=== PATIENT | female | born 1985 | race Caucasian/White ===

== ENCOUNTER 2018-12-09 17:45 | Emergency (ER) | payer SELFPAY ==
[2018-12-09 18:16] VITALS: BP 131/99
--- NOTE | 2018-12-09 18:50 | UC ---
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 Pt works [employer] on feet for 9 hrs." -pain started suddenly er mornimng. she wears good shoes with memory foam. she is constantly stretching. no known trauma. -no numbing. not cool to touch or hot to touch. she is off from work for the next 3 days. -denies chance of - History of Current Complaint Chief Complaint: UCLowerExtremity Stated Complaint: RIGHT FOOT INJURY Time Seen by Provider: 12/09/18 18:40 Hx Last Menstrual Period: early Oct Pain Intensity: 6 - Allergies/Home Medications Allergies/Adverse Reactions: Allergies Allergy/AdvReac Type Severity Reaction Status Date / Time No Known Allergies Allergy Verified 12/09/18 18:08 PMH/Surg Hx/FS Hx/Imm Hx Previously Healthy: Yes - Surgical History Surgical History: Yes Surgery Procedure, Year, and Place: adenoidectomy-06/2011- [facility]. eustation tube left ear -08/2011-[facility]- OFFICE. C-sect 2016. ganglion cyst removal - Family History Known Family History: Positive: None, Hypertension, Other - twins, positive FMh for arthralgia - Social History Alcohol Use: None Substance Use Type: None Smoking Status (MU): Heavy Every Day Tobacco Smoker Type: Cigarettes, eCigarettes Amount Used/How Often: <1 PPD Length of Time of Smoking/Using Tobacco: Since Age 19 Have You Smoked in the Last Year: Yes Household Exposure Type: Cigarettes - Immunization History Most Recent Influenza Vaccination: 5271-8931 Most Recent Tetanus Shot: Unknown Review of Systems All Other Systems Reviewed And Are Negative: Yes Constitutional: Positive: Negative. Negative: Fever, Chills Skin: Positive: Negative Eyes: Positive: Negative ENT: Positive: Negative Respiratory: Positive: Negative Cardiovascular: Positive: Negative Gastrointestinal: Positive: Negative Genitourinary: Positive: Negative Motor: Positive: Decreased ROM Neurovascular: Positive: Negative. Negative: Decreased Sensation, Decreased Pulses Musculoskeletal: Positive: Arthralgia. Negative: Edema Neurological: Positive: Negative. Negative: Weakness, Paresthesia, Numbness Psychological: Positive: Negative Is Patient Immunocompromised?: No Physical Exam Triage Information Reviewed: Yes Appearance: Well-Appearing, No Pain Distress, Well-Nourished Vital Signs: Initial Vital Signs Temp 97.8 F 12/09/18 18:10 Pulse 80 12/09/18 18:10 Resp 18 12/09/18 18:10 BP 131/99 12/09/18 18:10 Pulse Ox 100 12/09/18 18:10 Vital Signs Reviewed: Yes Eye Exam: Normal Respiratory Exam: Normal Respiratory: Positive: Lungs clear Cardiovascular Exam: Normal Cardiovascular: Positive: RRR Musculoskeletal: Positive: Other: - right foot with mild tenderness over plantar and dorsal metatarsal heads. increased pain with pushing off phase of gait. cool to touch. CR brisk. goo ROM. sens intact to LT. + 2 DP/PT pulse. Lower Extremity Course/Dx - Course Course Of Treatment: xray rt foot - no frx noted. -pt understands that RAD will not eval xray until AM, but read by me tonight. she should get a call in AM if there are any discrepancies. - Differential Dx/Diagnosis Differential Diagnosis/HQI/PQRI: Contusion, Fracture (Closed), Tendonitis Provider Diagnosis: Metatarsalgia of right foot Discharge ED - Sign-Out/Discharge Documenting (check all that apply): Patient Departure All imaging exams completed and their final reports reviewed: No - Discharge Plan Condition: Stable Disposition: HOME Patient Education Materials: Metatarsalgia (DC) Referrals: Frantz Vinson MD [Primary Care Provider] - Blake Anderson DPM [Doctor of Podiatric Medicine] - 4 Days Additional Instructions: I do not see any abnormalities on the xray. The radiologist will read the xray in the AM and you should get a call if there is a discrepancy from me. -Rest your foot, considering using a cane or crutches for a few days may be helpful. You can get pads for th emetatarsal heads, ibuprofen as needed and ice. The fact that you are not working for the next 3 days is helpful. -We are giving you the name of a cyber intel planner to call for follow up. -You should keep an eye on your blood pressure as it is elevated. The ibuprofen can raise it further. Repeat blood pressure was slightly better at 144/90 - Billing Disposition and Condition Condition: STABLE Disposition: Home
--- NOTE | 2018-12-10 09:17 | UC ---
- Progress Note Progress Note: Reviewed radiology reading of foot xray: NO FRACTURE SEEN, unchanged from wet read. No change in management due to this report. Course/Dx - Diagnoses Provider Diagnoses: Metatarsalgia of right foot Discharge ED - Sign-Out/Discharge Documenting (check all that apply): Post-Discharge Follow Up All imaging exams completed and their final reports reviewed: Yes - Discharge Plan Condition: Stable Disposition: HOME Patient Education Materials: Metatarsalgia (DC) Referrals: Justin PARRA,Blake Hodge [Doctor of Podiatric Medicine] - 4 Days Frantz Vinson MD [Primary Care Provider] - Additional Instructions: I do not see any abnormalities on the xray. The radiologist will read the xray in the AM and you should get a call if there is a discrepancy from me. -Rest your foot, considering using a cane or crutches for a few days may be helpful. You can get pads for th emetatarsal heads, ibuprofen as needed and ice. The fact that you are not working for the next 3 days is helpful. -We are giving you the name of a forensics team director to call for follow up. -You should keep an eye on your blood pressure as it is elevated. The ibuprofen can raise it further. Repeat blood pressure was slightly better at 144/90 - Billing Disposition and Condition Condition: STABLE Disposition: Home
== END 2018-12-09 19:53 | disposition home or self-care (01) ==
LOC: UCCORT 17:45
DX: M77.42 Metatarsalgia, left foot (principal); F17.210 Nicotine dependence, cigarettes, uncomplicated
CPT/HCPCS: 99212; G0463